=== PATIENT | female | born 1955 | race Caucasian/White ===

== ENCOUNTER 2018-08-29 22:31 | Inpatient (IN) | payer BC, OTHER ==
[~2018-08-29] VITALS: Ht 152.4 cm; Wt 65.4 kg
[2018-08-29 22:35] VITALS: BP_SYST 133
--- NOTE | 2018-08-29 22:40 | NUR ---
Patient triaged and placed in waiting room. VSS and patient appears in no acute distress at this time. Accompanied by family, awaiting available bed, and MD notified of need for MSE.
--- NOTE | 2018-08-29 22:54 | NUR ---
[place] jaquez in [facility] - 08/29/18 at 2255 by [email or web address] Pt wheeled to bed 8 for evaluation
--- NOTE | 2018-08-29 22:54 | NUR ---
Patient to ER bed 8 to gown for evaluation. Side rails up. Report given to Carla.
--- NOTE | 2018-08-29 22:58 | NUR ---
Pt AAOx4 presents to ED via wheelchair c/o R hip pain s/p trip and fall today. Pt was seen at [facility], diagnosed with R hip dislocation, and was referred to ED. Pt took tylenol and motrin at home with no relief. No other injuries/complaints per pt/noted. Daughter at bedside. Will continue to monitor.
--- NOTE | 2018-08-29 23:00 | NUR ---
Radiology at bedside for xray
[2018-08-29] MEDS ORDERED: NACL 0.9% 1,000 ML IV ONE (23:23)
[2018-08-29] MEDS ORDERED: MORPHINE 4 MG/ML INJ. SYRINGE IVP ONE (23:30)
[2018-08-29] MEDS ORDERED: DIPHENHYDRAMINE INJ 50 MG/ML VIAL IVP ONE (23:30)
--- NOTE | 2018-08-29 23:49 | NUR ---
Pt medicated with morphine IVP, benadryl IVP, IVF per md order. Tolerating well. Will cont. to monitor .
[2018-08-30 00:03] LABS: PROTHROMBIN TIME 9.8 SECS (9.5-12.5)
[2018-08-30 00:07] LABS: ALBUMIN 4.2 g/dL (3.4-4.8); CALCIUM 9.7 mg/dL (8.4-11.0); CREATININE 1.06 mg/dL (0.55-1.30); POTASSIUM 3.9 mmol/L (3.5-5.1); TOTAL BILIRUBIN 0.8 mg/dL (0.0-1.0)
[2018-08-30 00:10] LABS: BASOPHILS % (AUTO) 0.2 % (0.0-2.0); EOSINOPHILS # (AUTO) 0.1 K/uL (0.0-0.4); EOSINOPHILS % (AUTO) 0.5 % (0.0-4.0); HEMATOCRIT 42.2 % (36-48); HEMOGLOBIN 13.8 g/dL (12.0-16.0); LYMPHOCYTES % (AUTO) 17.5 % (20.5-51.5); MEAN CORPUSCULAR HEMOGLOBIN 28 pg (27-31); MEAN CORPUSCULAR HGB CONC 33 % (32-36); MEAN CORPUSCULAR VOLUME 86 fL (79.0-98.0); MONOCYTES # (AUTO) 0.7 K/uL (0.0-1.0); MONOCYTES % (AUTO) 5.9 % (1.7-9.3); NEUTROPHILS # (AUTO) 8.7 K/uL (1.8-7.7); NEUTROPHILS % (AUTO) 75.9 % (40.0-70.0); PLATELET COUNT (AUTO) 201 K/uL (130-430); RED BLOOD CELL COUNT(AUTO) 4.91 MIL/uL (4.2-6.2); RED CELL DISTRIBUTION WIDTH 12.7 % (9.0-15.0); WHITE BLOOD COUNT (AUTO) 11.5 K/uL (4.8-10.8)
--- NOTE | 2018-08-30 00:30 | NUR ---
Patient resting quietly in no acute distress, awaiting results and dispo.
--- NOTE | 2018-08-30 01:10 | NUR ---
Dr Ramirez at bedside speaking with patient/family regarding results and plan of care, questions answered by Dr Ramirez.
[2018-08-30] MEDS ORDERED: ONDANSETRON HCL 4 MG/2 ML VIAL IVP ONE (01:15)
[2018-08-30] MEDS ORDERED: MORPHINE 4 MG/ML INJ. SYRINGE IVP ONE (01:15)
--- NOTE | 2018-08-30 01:40 | NUR ---
Patient to CT scan in stable condition via gurney with family at her side.
--- NOTE | 2018-08-30 01:50 | NUR ---
Patient returned from CT scan in stable condition via gurney with family at her side. Awaiting results and dispo.
--- NOTE | 2018-08-30 02:00 | NUR ---
Patient resting quietly in no acute distress, vital signs stable, respirations even and unlabored, skin warm and dry to touch. Monitor continues to show sinus rhythm without ectopy, family remains at bedside, awaiting results. Comfort measures offered, but declined by patient.
--- NOTE | 2018-08-30 03:00 | NUR ---
Patient resting quietly in no acute distress, awaiting dispo.
--- NOTE | 2018-08-30 03:15 | NUR ---
Confirmed with patient and family that patient did not have a syncopal episode prior to fall. Patient denies CP/pressure or dizziness prior to fall, patient denies hitting her head. Dr Ramirez also confirmed this.
[2018-08-30] MEDS ORDERED: LOSA100T3 PO (03:21)
[2018-08-30] MEDS ORDERED: NOR10 PO (03:21)
[2018-08-30] MEDS ORDERED: SITA100T11 PO (03:21)
[2018-08-30] MEDS ORDERED: ONDANSETRON HCL 4 MG/2 ML VIAL IVP PRN (03:30)
[2018-08-30] MEDS ORDERED: ACETAMINOPHEN 325 MG TABLET PO PRN (03:30)
--- NOTE | 2018-08-30 03:30 | NUR ---
Patient will be admitted to care of Dr Morris. Admitted to tele unit. Will go to room 125-A. Belongings list completed. Summary report printed. Report will be given at bedside.
--- NOTE | 2018-08-30 03:35 | NUR ---
Transfer to tele room 125-A via ACLS protocol. Licensed nurse present. IV present no signs or symptoms of infiltration.
--- NOTE | 2018-08-30 03:56 | NUR ---
ADMISSION: The patient, JAKOB JAQUEZ, 62 y/o, F admitted by BRETT MCFARLAND MD,with the diagnosis of PELVIC FRACTURE , SYNCOPE , was given written information regarding hospital policies, unit procedures and contact persons.
[2018-08-30 04:08] LABS: CLARITY/URINE SLIGHTLY HAZY (CLEAR); COLOR,URINE YELLOW (YELLOW); PH,URINE 5.5 (5.0-8.0)
[2018-08-30 04:09] VITALS: BP_SYST 135
[2018-08-30 04:09] LABS: BILIRUBIN,URINE NEGATIVE (NEGATIVE); BLOOD, URINE NEGATIVE (NEGATIVE); GLUCOSE,URINE NEGATIVE (NEGATIVE); KETONES,URINE 1+ (NEGATIVE); LEUKOCYTE ESTERASE ,URINE 2+ (NEGATIVE); NITRITE, URINE POSITIVE (NEGATIVE); PROTEIN URINE NEGATIVE (NEGATIVE); UROBILINOGEN,URINE 0.2 (0.2-1.0)
[2018-08-30 04:13] LABS: BACTERIA,URINE MANY /HPF (None Seen); MUCUS,URINE 1+ /LPF (None Seen); RBC,URINE 0-3 /HPF (0-3); WBC,URINE 20-50 /HPF (0-3)
--- NOTE | 2018-08-30 04:30 | NUR ---
ADMISSION PHYSICAL ASSESSMENT NOTES; took over care from nurse Singh, admitted for pelvic fracture due to a slip and fall yesterday. awake, alert and oriented with daughter at bedside. pt. on bedrest, informed pt. she will be using bedpan to void and for BM. cardiac pattern on sinus rhythm. moves all extremities but with limitation on rt. leg. noted with pain 5/10 , but tolerable , will medicate when its time around 5:30 am. IV lock n rt. antecubital. noted skin abrasion on rt. elbow and rt. ankle , pictures taken by nurse Singh. oriented to room and use of call light, on safety precautions. call light within reach. bed has an overhead trapeze for support. Addendum: 08/30/18 at 0504 by Radha Salvador RN abrasion on rt. ankle 1.8x 1.6 cm
--- NOTE | 2018-08-30 05:35 | NUR ---
NOTES: pt. medicated with Morphine for c/o rt. pelvic pain. advised to get some rest and will check in an hour.
[2018-08-30] MEDS: MORPHINE 4 MG/ML INJ. SYRINGE IVP PRN ×3 (05:38→20:29)
--- NOTE | 2018-08-30 06:36 | NUR ---
CLOSING NOTES; pt. checked and sleeping , noted some relief from pain. will endorse to day shift about the UA result. for further care and assist. call light within reach.
--- NOTE | 2018-08-30 07:32 | NUR ---
endorsed pt. to incoming shift with nurse Epperson
[2018-08-30 08:00] VITALS: BP_SYST 114
--- NOTE | 2018-08-30 08:00 | NUR ---
Opening Note report received from Carla LAGUNAS shift nurse. Patient is currently resting in bed. No complaints of pain at the moment. Iv is on the RAC 20g saline locked. No signs of distress noted. Call light is within reach and bed is in low position. Will continue to monitor.
[2018-08-30] MEDS ORDERED: NITROFURANTOIN MONOHYD/M-CRYST 100 MG CAPSULE PO ONE (09:45)
--- NOTE | 2018-08-30 09:49 | NUR ---
CONSULTATION PAGED REASON FOR CONSULTATION:PELVIC FX WAS CONSULT CALLED?Y PERSON WHO WAS NOTIFIED:MARYJO CONSULTING PHYSICIAN:CULLEN ATWOOD RESEARCH AND EVALUATION ANALYST SPECIALTY:ORTHO RESEARCH AND EVALUATION ANALYST PHONE NUMBER:[phone] REQUESTING PHYSICIAN:CARLA OCAMPO
--- NOTE | 2018-08-30 10:15 | NUR ---
CONSULTATION PAGED REASON FOR CONSULTATION:PELVIC FX WAS CONSULT CALLED?Y PERSON WHO WAS NOTIFIED:ELIE CONSULTING PHYSICIAN:CULLEN ATWOOD ([employer] SALES REPRESENTATIVE) HOUSEKEEPING MANAGER SPECIALTY:ORTHO HOUSEKEEPING MANAGER PHONE NUMBER:[phone] REQUESTING PHYSICIAN:BRETT OCAMPO
[2018-08-30] MEDS: cefTRIAXone 1 GM in D5W 50 ML IV SCH (10:25)
--- NOTE | 2018-08-30 10:30 | NUR ---
Sanches cath insertion 16fr sanches cath inserted using sterile technique. Patient tolerated well.
--- NOTE | 2018-08-30 10:39 | NUR ---
DC PLANNING Discussed dc planning w Dr Morris in [facility], states no plan until seen by ortho consult. Called admitting & lt msg for insurance contact information & to inform per pt has Medicare Part A. Addendum: 08/30/18 at 1352 by Kayla Vega RN Insurance updated, called & spoke w [place] @ [facility], ph [phone], need to call for in-network DME ph [phone]. Called & spoke meek Marino contracted DME providers: [facility] ph [phone], [facility] [place], [facility] ph [phone], [facility].
--- NOTE | 2018-08-30 10:43 | NUR ---
Nutrition Update Gregg Scale 16 noted. Pt admitted for pelvic fracture, syncope. Diet: [facility] BMI: 28.2 kg/m2 RD to follow per nutrition care standards.
[2018-08-30 12:25] VITALS: BP_SYST 130
--- NOTE | 2018-08-30 12:30 | NUR ---
Rounds Patient is resting in bed. No signs of distress noted. Call light is within reach,
--- NOTE | 2018-08-30 14:30 | NUR ---
Rounds No signs of acute distress noted. Waiting for orthopedic consult.
[2018-08-30 16:40] VITALS: BP_SYST 125
[2018-08-30] MEDS ORDERED: BISACODYL 5 MG TABLET.DR (DULCOLAX) PO PRN (16:45)
[2018-08-30] MEDS ORDERED: DEXTROSE 50% JECT 50 ML DISP.SYRIN IVP PRN (16:45)
[2018-08-30] MEDS ORDERED: DOCUSATE SODIUM 250 MG CAPSULE PO ONE (16:45)
[2018-08-30] MEDS ORDERED: METOCLOPRAMIDE HCL 10 MG/2 ML VIAL IVP ONE (16:45)
[2018-08-30] MEDS ORDERED: BISACODYL 10 MG/SUPPOSITORY RC PRN (16:45)
--- NOTE | 2018-08-30 16:45 | NUR ---
MD Rounds Dr. Morris rounded on the patient. Orders were received
[2018-08-30] MEDS: INSULIN REGULAR, HUMAN 100 UNITS/ML, 10 ML VIAL (novoLIN R) SUBCUT PRN ×2 (17:40→20:36)
--- NOTE | 2018-08-30 18:50 | NUR ---
Closing Note Patient is resting in bed. IV is on the RAC 20g saline locked. NO signs of distress noted throughout the shift. Will continue to monitor.
--- NOTE | 2018-08-30 19:34 | NUR ---
OPENING NOTE RECEIVED CARE OF PT AND BEDSIDE REPORT. FAMILY AT BEDSIDE, NO SIGNS OF ACUTE DISTRESS NOTED AT THIS TIME. IV IS SALINE LOCKED, NO SIGN OF INFILTRATION AT IV SITE. PT BREATHING EVEN AND UNLABORED TO ROOM AIR. PT INSTRUCTED TO USE CALL LIGHT FOR ASSISTANCE, PT VERBALIZED UNDERSTANDING. SAFETY PRECAUTIONS IN PLACE, CALL LIGHT WITH PT, BED IN LOWEST POSITION, SIDE RAILS UP X 2, BED ALARM ON. WILL CONTINUE TO MONITOR.
[2018-08-30 20:00] VITALS: BP_SYST 137
[2018-08-30] MEDS: NITROFURANTOIN MONOHYD/M-CRYST 100 MG CAPSULE PO SCH (20:27)
[2018-08-30] MEDS: DOCUSATE SODIUM 250 MG CAPSULE PO SCH (20:27)
--- NOTE | 2018-08-30 20:29 | NUR ---
PAIN/MORPHINE ADMINISTERED PT REPORTING 7/10 PAIN IN RIGHT PELVIC AREA. MORPHINE 4 MG IVP ADMINISTERED. PT EDUCATED REGARDING MEDICATION AND POTENTIAL SIDE EFFECTS. SAFETY PRECAUTIONS IN PLACE, PT INSTRUCTED TO CALL FOR ANY ASSISTANCE. BED IN LOWEST POSITION, CALL LIGHT WITH PT, SIDE RAILS UP X 2, BED ALARM ON. WILL MONITOR.
--- NOTE | 2018-08-30 21:45 | NUR ---
PRIORITY AM LAB DRAW SPOKE WITH OLYA FROM LAB, AND REQUESTED PRIORITY AM LAB DRAW.
[2018-08-30] MEDS: TEMAZEPAM 15 MG CAPSULE PO PRN (22:36)
--- NOTE | 2018-08-30 22:36 | NUR ---
INSOMNIA/RESTORIL ADMINISTERED PT REPORTING INSOMNIA, RESTORIL 30 MG PO ADMINISTERED. PT EDUCATED REGARDING RESTORIL MEDICATION AND POTENTIAL SIDE EFFECTS. SAFETY PRECAUTIONS IN PLACE, PT INSTRUCTED TO CALL FOR ASSISTANCE. WILL CONTINUE TO MONITOR.
[2018-08-30 23:18] VITALS: BP_SYST 132
--- NOTE | 2018-08-31 00:02 | NUR ---
RN ROUNDS PT RESTING IN BED WITH EYES CLOSED. NO SIGNS OF ACUTE DISTRESS NOTED AT THIS TIME. SYMMETRICAL RISE AND FALL OF CHEST, BREATHING IS EVEN AND UNLABORED TO ROOM AIR. SAFETY PRECAUTIONS ARE IN PLACE, BED IN LOWEST POSITION, CALL LIGHT WITH PT, SIDE RAILS UP X 2, BED ALARM ON. WILL MONITOR.
--- NOTE | 2018-08-31 02:04 | NUR ---
BEDPAN ASSISTED PT TO USE BEDPAN. PT ABLE TO PRODUCE SMALL BOWEL MOVEMENT. PT TOLERATED WELL. PT INSTRUCTED TO CALL FOR ASSISTANCE. SAFETY PRECAUTIONS ARE IN PLACE. BED IN LOWEST POSITION, SIDE RAILS UP X2, BED ALARM ON, CALL LIGHT WITH PT. WILL MONITOR.
--- NOTE | 2018-08-31 03:29 | NUR ---
RN ROUNDS PT RESTING IN BED WITH EYES CLOSED. SYMMETRICAL RISE AND FALL OF CHEST, BREATHING IS EVEN AND UNLABORED TO ROOM AIR. IV SALINE LOCKED, NO SIGN OF INFILTRATION AT IV SITE. POE CATHETER IS INTACT AND DRAINING WELL TO GRAVITY. SAFETY PRECAUTIONS ARE IN PLACE, BED IN LOWEST POSITION, CALL LIGHT WITH PT, BED ALARM ON, SIDE RAILS UP X2. WILL CONTINUE TO MONITOR.
--- NOTE | 2018-08-31 04:14 | NUR ---
AM LABS SHOULDER SAWYEREVELIA QUINTERO, AT BEDSIDE COLLECTING AM LABS. PT TOLERATED WELL. NO COMPLAINTS OF PAIN AT THIS TIME. PT INSTRUCTED TO CALL FOR ANY ASSISTANCE. SAFETY PRECAUTIONS IN PLACE. BED IN LOWEST POSITION, SIDE RAILS UPX2, BED ALARM ON, CALL LIGHT WITH PT. WILL CONTINUE TO MONITOR.
[2018-08-31] MEDS: INSULIN REGULAR, HUMAN 100 UNITS/ML, 10 ML VIAL (novoLIN R) SUBCUT PRN ×4 (06:06→20:06)
[2018-08-31 06:12] LABS: BASOPHILS % (AUTO) 0.3 % (0.0-2.0); EOSINOPHILS # (AUTO) 0.2 K/uL (0.0-0.4); EOSINOPHILS % (AUTO) 2.3 % (0.0-4.0); HEMATOCRIT 39.4 % (36-48); HEMOGLOBIN 12.8 g/dL (12.0-16.0); LYMPHOCYTES % (AUTO) 22.5 % (20.5-51.5); MEAN CORPUSCULAR HEMOGLOBIN 28 pg (27-31); MEAN CORPUSCULAR HGB CONC 32 % (32-36); MEAN CORPUSCULAR VOLUME 87 fL (79.0-98.0); MONOCYTES # (AUTO) 0.7 K/uL (0.0-1.0); MONOCYTES % (AUTO) 7.9 % (1.7-9.3); NEUTROPHILS # (AUTO) 6.2 K/uL (1.8-7.7); PLATELET COUNT (AUTO) 195 K/uL (130-430); RED BLOOD CELL COUNT(AUTO) 4.51 MIL/uL (4.2-6.2); RED CELL DISTRIBUTION WIDTH 12.8 % (9.0-15.0); WHITE BLOOD COUNT (AUTO) 9.1 K/uL (4.8-10.8)
[2018-08-31 06:30] LABS: POTASSIUM 4.3 mmol/L (3.5-5.1)
[2018-08-31 06:32] LABS: ALBUMIN 3.5 g/dL (3.4-4.8); CALCIUM 9.1 mg/dL (8.4-11.0); CREATININE 0.55 mg/dL (0.55-1.30); TOTAL BILIRUBIN 0.6 mg/dL (0.0-1.0)
--- NOTE | 2018-08-31 07:30 | NUR ---
CLOSING NOTE ENDORSED CARE TO DAY SHIFT NURSE. ALL NEEDS WERE MET.
[2018-08-31 08:00] VITALS: BP_SYST 129
--- NOTE | 2018-08-31 08:00 | NUR ---
A/OX4. IV ON RIGHT AC, #20, SL, INTACT AND PATENT. PT'S BREATHING IS EVEN AND UNLABORED TO ROOM AIR, CHEST RISING AND FALLING EVENLY. PT INSTRUCTED TO USE CALL LIGHT FOR NEEDS, BED LOCKED AT THE IN LOWEST POSITION, SIDE RAILS UP X 2, BED ALARM ON. PATIENT IS EXPLAINED ON POC, SHE VERBALIZED UNDERSTANDING.
--- NOTE | 2018-08-31 08:47 | NUR ---
Dakotah Rahman called spoke to dialed [phone]
[2018-08-31] MEDS: NITROFURANTOIN MONOHYD/M-CRYST 100 MG CAPSULE PO SCH ×2 (08:54→20:01)
[2018-08-31] MEDS: LOSARTAN POTASSIUM 50 MG TABLET (COZAAR) PO SCH (08:55)
[2018-08-31] MEDS: amLODIPine BESYLATE 10 MG TABLET PO SCH (08:55)
[2018-08-31] MEDS: DOCUSATE SODIUM 250 MG CAPSULE PO SCH ×2 (08:55→20:01)
[2018-08-31] MEDS: cefTRIAXone 1 GM in D5W 50 ML IV SCH (08:56)
--- NOTE | 2018-08-31 09:42 | NUR ---
DR. CRAWFORD CALLED BACK. STATED WILL COME BY AND ASSESS PATIENT.
[2018-08-31 11:19] VITALS: BP_SYST 135
--- NOTE | 2018-08-31 11:30 | NUR ---
PATIENT BLOOD SUGAR 216. RECEIVED 4 UNITS OF RI COVERAGE PER SLIDING SCALE.
--- NOTE | 2018-08-31 13:54 | NUR ---
patient is resting after lunch. No signs of distress noted at this time.
--- NOTE | 2018-08-31 16:00 | NUR ---
Ortho consult is paged. Awaiting call back.
[2018-08-31 16:13] VITALS: BP_SYST 123
--- NOTE | 2018-08-31 17:16 | NUR ---
Patient's blood sugar 197. 2 units of RI will be given per sliding scale.
--- NOTE | 2018-08-31 18:30 | NUR ---
Patient finishes her dinner without distress.
--- NOTE | 2018-08-31 19:33 | NUR ---
OPENING NOTE RECEIVED CARE OF PT AND BEDSIDE REPORT. PT IS AAOX4, RESTING IN BED WITH FAMILY AT BEDSIDE. PT IS BREATHING EVEN AND EFFORTLESSLY TO ROOM AIR. IV IS SALINE LOCKED TO RIGHT AC WITH NO SIGN OF INFILTRATION AT IV SITE. POE CATHETER IS INTACT AND DRAINING WELL TO GRAVITY. PT DENIES PAIN AT THIS TIME. PT INSTRUCTED TO CALL FOR ASSISTANCE. SAFETY PRECAUTIONS OBSERVED: BED IN LOWEST POSITION, SIDE RAILS UP X 2, CALL LIGHT WITH PT, BED ALARM ON. WILL CONTINUE TO MONITOR.
[2018-08-31 20:00] VITALS: BP_SYST 149
[2018-08-31] MEDS: MORPHINE 4 MG/ML INJ. SYRINGE IVP PRN (21:18)
--- NOTE | 2018-08-31 21:20 | NUR ---
PAIN/MORPHINE ADMINISTERED PT REPORTING 7/10 PAIN IN HER RIGHT PELVIC AREA. PT REPOSITIONED FOR COMFORT. MORPHINE 4 MG IVP ADMINISTERED. PT EDUCATED REGARDING MEDICATION AND POTENTIAL SIDE EFFECTS. PT INSTRUCTED TO CALL FOR ASSISTANCE. CALL LIGHT WITH PT, BED IN LOWEST POSITION, SIDE RAILS UP X 2, BED ALARM ON. WILL MONITOR.
[2018-08-31] MEDS: TEMAZEPAM 15 MG CAPSULE PO PRN (21:54)
--- NOTE | 2018-08-31 21:56 | NUR ---
INSOMNIA/RESTORIL ADMINISTERED PT REPORTING INSOMNIA AND TROUBLE FALLING ASLEEP. RESTORIL 30 MG PO ADMINISTERED. PT EDUCATED REGARDING MEDICATION AND POTENTIAL SIDE EFFECTS. PT INSTRUCTED TO CALL FOR ASSISTANCE. SAFETY PRECAUTIONS IN PLACE. WILL MONITOR.
--- NOTE | 2018-08-31 23:16 | NUR ---
RN ROUNDS PT RESTING IN BED WITH NO SIGNS OF ACUTE DISTRESS NOTED. IV IS SALINE LOCKED, NO SIGN OF INFILTRATION AT IV SITE. POE CATHETER IS DRAINING WELL TO GRAVITY. PT INSTRUCTED TO CALL FOR ASSISTANCE. SAFETY PRECAUTIONS ARE IN PLACE, BED IN LOWEST POSITION, CALL LIGHT WITH PT, BED ALARM ON, SIDE RAILS UP X2. WILL CONTINUE TO MONITOR.
[2018-08-31 23:26] VITALS: BP_SYST 122
--- NOTE | 2018-09-01 01:01 | NUR ---
RN ROUNDS PT RESTING IN BED WITH EYES CLOSED. NO SIGNS OF ACUTE DISTRESS NOTED. SYMMETRICAL RISE AND FALL OF CHEST, BREATHING EVEN AND UNLABORED TO ROOM AIR. POE CATHETER IS DRAINING WELL TO GRAVITY. SAFETY PRECAUTIONS ARE IN PLACE, BED IN LOWEST POSITION, CALL LIGHT WITH PT, BED ALARM ON, SIDE RAILS UP X2. WILL CONTINUE TO MONITOR.
--- NOTE | 2018-09-01 04:09 | NUR ---
RN ROUNDS PT RESTING COMFORTABLY IN BED WITH EYES CLOSED. NO SIGNS OF ACUTE DISTRESS NOTED. SYMMETRICAL RISE AND FALL OF CHEST, BREATHING EVEN AND UNLABORED TO ROOM AIR. POE CATHETER IS DRAINING WELL TO GRAVITY. SAFETY PRECAUTIONS ARE IN PLACE, BED IN LOWEST POSITION, CALL LIGHT WITH PT, BED ALARM ON, SIDE RAILS UP X2. WILL CONTINUE TO MONITOR.
[2018-09-01] MEDS: INSULIN REGULAR, HUMAN 100 UNITS/ML, 10 ML VIAL (novoLIN R) SUBCUT PRN ×4 (06:07→20:17)
--- NOTE | 2018-09-01 06:11 | NUR ---
ACCUCHECK BLOOD SUGAR 190, 2 UNITS OF INSULIN GIVEN PER SLIDING SCALE. SAFETY PRECAUTIONS IN PLACE. WILL MONITOR.
--- NOTE | 2018-09-01 06:26 | NUR ---
CLOSING NOTE PT RESTING COMFORTABLY IN BED. IV IN THE RAC 20G IS SALINE LOCKED. POE CATHETER IS INTACT AND DRAINING TO GRAVITY. BREATHING EVEN AND UNLABORED TO ROOM AIR. NO SIGNS OF DISTRESS NOTED THROUGHOUT SHIFT. ALL NEEDS MET THROUGHOUT SHIFT. WILL ENDORSE CARE TO DAY SHIFT RN. WILL ALSO ENDORSE TO DAY SHIFT RE-PAGING OF ORTHO CONSULT.
--- NOTE | 2018-09-01 07:40 | NUR ---
AM note patient resting in bed, a/ox4, denies pain, family at bedside, assessment complete, Jain Catheter in place draining, IV line is patent and infusing well, discussed plan of care, education video production specialist light system, patient verbalized understanding, bed in lowest position, three side rails up, bed alarm on, call light within reach, fall and aspiration precautions in place.
[2018-09-01 08:40] VITALS: BP_SYST 121
[2018-09-01] MEDS: DOCUSATE SODIUM 250 MG CAPSULE PO SCH ×2 (09:17→20:18)
[2018-09-01] MEDS: LOSARTAN POTASSIUM 50 MG TABLET (COZAAR) PO SCH (09:17)
[2018-09-01] MEDS: amLODIPine BESYLATE 10 MG TABLET PO SCH (09:18)
[2018-09-01] MEDS: NITROFURANTOIN MONOHYD/M-CRYST 100 MG CAPSULE PO SCH (09:18)
[2018-09-01] MEDS: cefTRIAXone 1 GM in D5W 50 ML IV SCH (09:19)
--- NOTE | 2018-09-01 09:20 | NUR ---
Medications patient resting in bed, awake, denies pain, educated on morning medications uses and potential side effects, she verbalized understanding and tolerated well, IV line is patent and infusing well, continuing to monitor, bed in lowest position, two side rails up, bed alarm on, call light within reach, fall and aspiration precautions in place.
--- NOTE | 2018-09-01 11:20 | NUR ---
RN rounds/Blood glucose patient resting in bed, denies pain, blood glucose checked and insulin coverage provided per MD orders, patient requested for personal items to be moved closer to her, followed through, no other needs at this time, bed in lowest position, three side rails up, bed alarm on, call light within reach, fall and aspiration precautions in place, continuing to monitor.
[2018-09-01 12:30] VITALS: BP_SYST 118
--- NOTE | 2018-09-01 14:46 | NUR ---
Follow up on Ortho Consult for Dr. Rahman, regarding Pelvic Fracture, spoke with Erika at the exchange, Dr. Rahman to come see the patient today.
--- NOTE | 2018-09-01 15:13 | NUR ---
Dr. Morris rounds assessed patient at bedside, will follow up with any new orders.
--- NOTE | 2018-09-01 15:30 | NUR ---
Dr. Rahman rounds assessed patient at beside, and spoke with patient and family at bedside as well, will follow up with any new orders. Addendum: 09/01/18 at 1602 by Pee eBrmudez RN Plan: continue with Physical Therapy, depending on how patient does, may go home with home health or [facility] for rehab, depending how patient does with Physical Therapy.
[2018-09-01 16:23] VITALS: BP_SYST 151
--- NOTE | 2018-09-01 17:03 | NUR ---
Patient up with Physical therapy receiving gait training with front wheel walker, tolerating well, assessing needs to assistance and pain medication, patient's daughter involved with physical therapy.
--- NOTE | 2018-09-01 17:39 | NUR ---
Blood glucose/Rounds assisted patient back from restroom with Physical Therapist, patient tolerated PT well, made comfortable in bed again, family at bedside, blood glucose checked and insulin coverage provided per MD orders at this time, provided with fresh ice water per patient request, no other needs at this time, bed in lowest position, three side rails up, bed alarm on, call light within reach, fall and aspiration precautions in place.
--- NOTE | 2018-09-01 18:44 | NUR ---
Closing note patient resting in bed, awake, denies pain, all needs met, will endorse report to NOC shift nurse, bed in lowest position, three side rails up, bed alarm on, call light within reach, fall and aspiration precautions in place.
--- NOTE | 2018-09-01 21:40 | NUR ---
REPOSITIONED/LINEN CHANGE ASSISTED PT WITH REPOSITIONING IN BED FOR COMFORT. CLEAN LINEN PROVIDED. PT DENIES PAIN OR DISCOMFORT AT THIS TIME. PT INSTRUCTED TO CALL FOR ASSISTANCE. SAFETY PRECAUTIONS IN PLACE: BED IN LOWEST POSITION, CALL LIGHT WITH PT, SIDE RAILS UP X 2, BED ALARM ON. WILL MONITOR.
[2018-09-01] MEDS: TEMAZEPAM 15 MG CAPSULE PO PRN (22:35)
--- NOTE | 2018-09-01 22:35 | NUR ---
INSOMNIA PT REPORTING DIFFICULTY FALLING ASLEEP. RESTORIL 30 MG PO ADMINISTERED. PT EDUCATED REGARDING MEDICATION AND POTENTIAL SIDE EFFECTS. PT INSTRUCTED TO CALL FOR ASSISTANCE. SAFETY PRECAUTIONS IN PLACE: BED IN LOWEST POSITION, CALL LIGHT WITH PT, SIDE RAILS UP X 2, BED ALARM ON. WILL CONTINUE TO MONITOR.
[2018-09-02] VITALS: BP_SYST 130
--- NOTE | 2018-09-02 01:59 | NUR ---
RN ROUNDS PT RESTING IN BED WITH EYES CLOSED. SYMMETRICAL RISE AND FALL OF CHEST, BREATHING IS EVEN AND EFFORTLESS TO ROOM AIR. IV SALINE LOCKED, WITH NO SIGN OF INFILTRATION AT IV SITE. POE CATHETER IS INTACT AND DRAINING WELL TO GRAVITY. SAFETY PRECAUTIONS ARE IN PLACE, BED IN LOWEST POSITION, CALL LIGHT WITH PT, BED ALARM ON, SIDE RAILS UP X2. WILL CONTINUE TO MONITOR.
[2018-09-02] MEDS: INSULIN REGULAR, HUMAN 100 UNITS/ML, 10 ML VIAL (novoLIN R) SUBCUT PRN ×4 (06:30→21:34)
--- NOTE | 2018-09-02 06:35 | NUR ---
ACCUCHECK PT'S BLOOD SUGAR WAS 197. 2 UNITS OF REGULAR INSULIN GIVEN PER SLIDING SCALE. PT DENIES ANY PAIN OR DISCOMFORT. SAFETY PRECAUTIONS IN PLACE, WILL MONITOR.
--- NOTE | 2018-09-02 06:52 | NUR ---
CLOSING NOTE WILL ENDORSE CARE TO DAY SHIFT NURSE. ALL NEEDS WERE MET DURING SHIFT. SAFETY PRECAUTIONS IN PLACE.
[2018-09-02 08:00] VITALS: BP_SYST 134
--- NOTE | 2018-09-02 08:00 | NUR ---
AM NOTES IN BED, AWAKE. EATING BREAKFAST. DENIES ANY PAIN OR DISCOMFORT AT THIS TIME. AMBULATE WITH WALKER WITH ASSIST. POE CATHETER DRAINING WELL. SAFETY PRECAUTION OBSERVED. ENC. TO CALL FOR HELP NEEDED. CALL LIGHT IN REACH. WILL MONITOR.
[2018-09-02] MEDS: cefTRIAXone 1 GM in D5W 50 ML IV SCH (09:26)
[2018-09-02] MEDS: LOSARTAN POTASSIUM 50 MG TABLET (COZAAR) PO SCH (09:26)
[2018-09-02] MEDS: amLODIPine BESYLATE 10 MG TABLET PO SCH (09:27)
[2018-09-02] MEDS: DOCUSATE SODIUM 250 MG CAPSULE PO SCH ×2 (09:27→21:30)
--- NOTE | 2018-09-02 09:54 | NUR ---
NOTES AMBULATE WITH PHYSICAL THERAPY WITH FWW IN THE HALLWAY. PT TOLERATED WELL.DENIES ANY PAIN OR DISCOMFORT
--- NOTE | 2018-09-02 12:00 | NUR ---
NOTES- UP IN CHAIR, EATING LUNCH. DENIES ANY PAIN OR DISCOMFORT. NO ACUTE DISTRESS NOTED. WILL MONITOR.
[2018-09-02 12:09] VITALS: BP_SYST 140
[2018-09-02] MEDS ORDERED: DOCUSATE SODIUM 250 MG CAPSULE PO SCH (13:15)
--- NOTE | 2018-09-02 14:00 | NUR ---
MD ROUNDS SEEN BY DR. MCFARLAND AT BEDSIDE AND DISCHARGE HOME WITH HOME HEALTH. PT AGREEABLE.
--- NOTE | 2018-09-02 14:13 | NUR ---
MARTY PLANNING Order for dc planning home w home health & DME: sadie ROUSSEAU. Spoke w pt & @ bedside, states that does not want SNF agreeable w home health & DME. States that will be staying home to assist her & her son is also going to be staying over @ her house to assist until she is better. No preference for DME or HH company. Informed marty Fuentes city planner.
--- NOTE | 2018-09-02 14:43 | NUR ---
Discharge Planning: DCP faxed pt referral to [facility] (f [phone] p [phone]) for DME ONELIA Bowen, [facility] (f [phone] p [phone]); DCP to follow up Addendum: 09/02/18 at 1554 by Gina QUACH DCP faxed pt referral to [facility] (f [phone] p [phone]), [facility] (f [phone] p [phone]) was having issues verifying insurance. DCP followed up with [facility] (f [phone] p [phone]) insurance is being verified.
--- NOTE | 2018-09-02 16:00 | NUR ---
NOTES AMBULATE WITH FWW IN THE HALLWAY. PT TOLERATED WELL. PAIN IS CONTROLLED.
[2018-09-02 16:45] VITALS: BP_SYST 135
--- NOTE | 2018-09-02 17:51 | NUR ---
NOTES- STILL WAITING FOR THE HOME HEALTH ARRANGEMENT AT THIS TIME. PT MADE AWARE
--- NOTE | 2018-09-02 18:46 | NUR ---
Notes In bed, eating dinner. family at bedside. Denies any pain or discomfort. no acute distress noted. will continue to monitor.
--- NOTE | 2018-09-02 19:15 | NUR ---
OPENING NOTE Received report from ISIDRO. Patient resting in bed awake, alert, oriented x4. at the bedside. Breathing unlabored and even on room air. No signs of distress, no needs at this time. Fall and safety precautions in place. Bed in lowest position, brake on, call light within reach. Patient to be d/c home with walker. Will follow up.
--- NOTE | 2018-09-02 20:20 | NUR ---
Jain catheter removed as ordered by . Pt tolerated the procedure well.
[2018-09-02 21:08] VITALS: BP_SYST 147
--- NOTE | 2018-09-02 21:15 | NUR ---
Patient voided s/p sanches catheter removal.
--- NOTE | 2018-09-02 21:45 | NUR ---
Med pass. Blood sugar 162. Administered 2 units of insulin per PRN insulin sliding scale.
--- NOTE | 2018-09-02 22:00 | NUR ---
D/C Patient Patient given medication reconciliation form and D/C instructions. Exit Care provided. Patient verbalized understanding. MD discussed with patient the results and treatment provided. Ambulatory with steady gait with use of walker for discharge to home. Patient has Hydrobolt walker until home health can provide one for the patient. Patient in stable condition, ID band removed. IV catheter removed, intact and dressing applied, no active bleeding. Rx of given. Patient educated on pain management. All belongings sent with patient.
--- NOTE | 2018-09-03 14:40 | NUR ---
Discharge Planning: MARTYP spoke to patient regarding home health and DME. [facility] (f [phone] p [phone]) was trying to to get in touch with patient for copay of DME. TYLER spoke to Debbi at [facility] and stated patient needs to call billing at [phone] and then DME order will proceed. TYLER is still trying to find home health contracted with patients insurance that will take patient. Addendum: 09/03/18 at 1521 by Gina QUACH MARTYP faxed pt referral to [facility] (f [phone] p [phone]) MARTYP to follow up
--- NOTE | 2018-09-04 14:12 | NUR ---
Discharge Planning: [facility] (f [phone] p [phone]) [facility] accepted the patient. DCP called patient and informed her she would receive a call.
== END 2018-09-02 22:00 | disposition home health service (06) | DRG 536 ==
LOC: SED 22:31 → STU 08-30 03:23 → SMU 09-01 16:06
PROVIDERS: ADMIT Internal Medicine; ATTEND Internal Medicine
DX: S32.591A Other specified fracture of right pubis, initial encounter for closed fracture (principal); N39.0 Urinary tract infection, site not specified; W18.39XA Other fall on same level, initial encounter; E11.9 Type 2 diabetes mellitus without complications; I10 Essential (primary) hypertension; F41.9 Anxiety disorder, unspecified; B96.20 Unspecified Escherichia coli [E. coli] as the cause of diseases classified elsewhere; E55.9 Vitamin D deficiency, unspecified; Y93.89 Activity, other specified; Y92.89 Other specified places as the place of occurrence of the external cause; Y99.8 Other external cause status; Z79.899 Other long term (current) drug therapy
CPT/HCPCS: 36415; 72192-TC; 73502; 80053; 81000-TC; 82306; 82962; 83735-TC; 85025; 85610-TC; 85730-TC; 87086; 87186-TC; 90656; 96374; 96375; 97110-GP; 97116-GP; 97530-GP; 99285; G0378; J0696; J1200; J1815; J2270; J2405; J7060